=== PATIENT | female | born 1980 ===

== ENCOUNTER 2017-07-09 15:16 | Inpatient (IN) | payer OTHER ==
[~2017-07-09] VITALS: Ht 160 cm; Wt 68.5 kg
[2017-08-15] MEDS ORDERED: PRENATAL 19 TA1 EACH PO (21:14)
== END 2017-08-18 09:50 | disposition home or self-care (01) | DRG 775 ==
LOC: OB/GYN 08-15 21:03 → LDR 08-15 21:03 → OB/GYN 08-16 02:08 → LDR 08-18 15:16
PROC: 10907ZC Drainage of Amniotic Fluid, Therapeutic from Products of Conception, Via Natural or Artificial Opening (ICD-10-PCS; 2017-08-15)
PROC: 4A1HXCZ Monitoring of Products of Conception, Cardiac Rate, External Approach (ICD-10-PCS; 2017-08-15)
PROC: 10E0XZZ Delivery of Products of Conception, External Approach (ICD-10-PCS; principal; 2017-08-16)
PROC: 0KQM0ZZ Repair Perineum Muscle, Open Approach (ICD-10-PCS; 2017-08-16)
PROC: 4A033R1 Measurement of Arterial Saturation, Peripheral, Percutaneous Approach (ICD-10-PCS; 2017-08-16)
DX: O70.1 Second degree perineal laceration during delivery (principal); Z37.0 Single live birth; Z3A.39 39 weeks gestation of pregnancy